=== PATIENT | male | born 1985 | race Caucasian/White ===

== ENCOUNTER 2024-02-29 09:09 | Emergency (ER) | payer OTHER, SELFPAY ==
[2024-02-29] VITALS (8 sets, daily range): BP systolic 96–113; BP diastolic 56–76; BMI 27.2
--- NOTE | 2024-02-29 10:01 | ED.GENMED ---
History of Present Illness
General
Chief Complaint: Abdominal Symptoms
Source: patient
Exam Limitations: none
Time Seen by Provider: 02/29/24 09:46
Nursing documentation reviewed up to this point in time: agreed with
History of Present Illness
History of Present Illness:
38-year-old male presents to the emergency department for nausea vomiting diarrhea that started around 3 AM. Patient has vomited multiple times and has had several episodes of diarrhea. He feels very weak. He reports he did have a low-grade
fever at home. He does report that his had a little bit of diarrhea today.
He denies any actual abdominal pain.
Past History
Past History
ED Past Medical History: Hypercholesterolemia
ED Past Surgical History: None
Social History
Tobacco: Non-smoker
Alcohol: Occasional
Drug: Marijuana (Occasional)
Review of Systems
Review of Systems
Allergies reviewed?: Yes
All Other Systems: ROS reviewed and negative except as documented in HPI and ROS
Constitutional: Reports fever, fatigue and chills
EENT: Reports no symptoms
Respiratory: Reports no symptoms
ABD/GI: Reports nausea, vomiting and diarrhea; Denies abdominal pain
Skin: Reports no symptoms
Neurological: Reports no symptoms
Hematologic/Lymphatic: Reports no symptoms
Psychiatric: Reports no symptoms
Phy Exam
General Physical Exam
General Presentation: no apparent distress
General age: appears stated age
General Skin: warm and dry
General Habitus: normal
General Mental: alert
General Hydration: appears well hydrated
Cardiovascular Exam
Cardiovascular Exam: tachycardia
Pulmonary Exam
Pulmonary Exam: lungs clear and no respiratory distress
Gastrointestinal Exam
Gastrointestinal Exam: normal bowel sounds, non tender and soft
Neurological Exam
Neurological Exam: alert and oriented x3
Musculoskeletal Exam
Musculoskeletal Exam: full ROM
Skin Exam
Skin Exam: normal color and warm/dry
Psychiatric Exam
Psychiatric Exam: normal mood/affect
Course
Orders/Labs/Results
Orders:
Orders
02/29/24 09:57
CMP [Comprehensive Metabolic Panel] Urgent
Complete Blood Count/With Diff Urgent
02/29/24 10:06
Ondansetron Injectable [Zofran] 4 mg IV NOW STA
02/29/24 10:08
0.9% Sodium Chloride 1000 ml [Nss] 1,000 ml IV BOLUS
02/29/24 10:21
COVID-19 Antigen Urgent
Source: Nasal Swab
Influenza A+B Rapid Molecular Urgent
JUMANA Source: Nasal Swab
Specimen Description:
02/29/24 10:59
Ondansetron Injectable [Zofran] 4 mg IV NOW STA
02/29/24 13:51
0.9% Sodium Chloride 1000 ml [Nss] 1,000 ml IV BOLUS
02/29/24 16:08
Ondansetron Orally Disint [Zofran Odt (Orally Disintegrating)] 4 mg PO NOW STA
02/29/24 16:09
Ondansetron HCl [Zofran] 4 mg .ROUTE .STK-MED ONE
02/29/24 16:10
Ondansetron HCl [Zofran] 4 mg PO NOW STA
02/29/24 16:12
Electrocardiogram (*1) Stat
Reason for Study: Other
Other Reason for Exam: chest pain
EKG- Treatment ONCE
Abnormal Lab Results
02/29/24
09:57
Absolute Neuts (auto) 8.4 H 10^3/uL
(1.4-6.5)
Absolute Lymphs (auto) 0.4 L 10^3/uL
(1.2-3.4)
Neutrophils % 90.3 H %
(42.2-75.2)
Lymphocytes % 4.5 L %
(20.5-51.1)
Glucose 190 H mg/dl
(70-99)
02/29/24 09:57
02/29/24 09:57
Vital Signs
Initial and Last Documented VS:
Initial Vital Signs
Temp Pulse Resp BP Pulse Ox
97.8 F 106 24 105/73 100
02/29/24 09:23 02/29/24 09:23 02/29/24 09:23 02/29/24 09:23 02/29/24 09:23
Last Documented Vital Signs
Temp Pulse Resp BP Pulse Ox
97.8 F 90 15 107/71 99
02/29/24 09:23 02/29/24 16:00 02/29/24 16:00 02/29/24 16:00 02/29/24 16:00
MDM/Problems Addressed
Differential Diagnosis Includes:
Not limited to viral syndrome dehydration
MDM/Problems Addressed:
Symptoms are consistent most likely with viral syndrome; patient is negative for COVID-negative for flu. He did not have any episodes of diarrhea here in the treatment area. Patient was given fluids as he was mildly hypotensive and nausea
medicine. Patient was monitored here now tolerating fluids feeling much better. also has diarrhea likely viral. Patient now feeling well enough to go home.
*Pulse Oximetry
Patient hypoxic: no
*EKG
Interpreted by ED Provider?: Yes
Heart Rate: 94
Rate: normal
Rhythm: sinus
Ischemia: no ischemia
*Critical Care Note
Total Time (30-74mins, 75-104mins- exclusive of procedures): Not Applicable
ED Attending Note
-
Portions of this chart may have been created with voice recognition software.� Occasional wrong word or��sound alike� substitutions may have occurred due to the inherent limitations of voice recognition software.
Discharge Plan
Departure
Patient Disposition: Home (Routine Discharge)
Date of Disposition: 02/29/24
Time of Disposition: 16:11
Patient with high blood pressure during this ER visit?: No
Condition: Fair
Covid-19: Not Applicable
Discharge Problem:
Nausea & vomiting
Instructions: Clear Liquid Diet, Caroline Diet, Nausea and Vomiting, Adult (DC)
Prescriptions:
New
ondansetron 4 mg tablet,disintegrating
4 mg PO Q8H PRN (Reason: nausea and vomiting) Qty: 10 0RF
Referrals:
Lolis Santacruz, [Family Provider] -
Activity Restrictions/Additional Instructions:
As discussed clear liquid fluids for the next 24 hours followed by bland solids. A prescription for Zofran was sent to your pharmacy. Take as needed. Follow-up with your family doctor in the next several days. Return if any worsening of
symptoms.
Interventions
Interventions:
*Risk Screen - Suicide Last Done: 02/29/24 09:55
*General Assessment Last Done: 02/29/24 09:55
*Neglect/Abuse Screening Last Done: 02/29/24 09:55
ED- Fall Risk Assessment Last Done: 02/29/24 09:55
*ED COVID-19 Vaccine History Last Done: 02/29/24 09:55
AH-Frtokm-Imeuipwbjt Assessment Last Done: 02/29/24 09:55
Discharge Date and Time
Print Language: UKRAINIAN
[2024-02-29 10:03] LABS: % Basophils 0.3 % (0-2); % Eosinophils 0.5 % (0-6); % Immature Granulocytes 0.3 % (0-0.5); % Lymphocytes 4.5 % (20.5-51.1); % Monocytes 4.1 % (1.7-9.3); % Neutrophils 90.3 % (42.2-75.2); Absolute Eosinophils 0.1 10^3/uL (0-0.7); Absolute Lymphocytes 0.4 10^3/uL (1.2-3.4); Absolute Monocytes 0.4 10^3/uL (0.1-0.6); Absolute Neutrophils 8.4 10^3/uL (1.4-6.5); Hematocrit 43.2 % (39.0-52.0); Hemoglobin 15.4 g/dL (13.0-18.0); Mean Corp Hgb Conc. 35.6 g/dL (33.0-37.0); Mean Corpuscular Hgb 29.8 pg (27.0-31.0); Mean Corpuscular Volume 83.7 fL (80.0-94.0); Mean Platelet Volume 9.2 fL (7.4-10.4); Nucleated Red Blood Cells % 0 % (-); Platelet Count 210 10^3/uL (130-400); Red Blood Cell Count 5.16 10^6/uL (4.70-6.10); Red Cell Dist. Width 11.7 % (11.5-14.5); White Blood Cell Count 9.3 10^3/uL (4.8-10.8)
[2024-02-29 10:16] LABS: ALT (SGPT) 39 U/L (0-50); AST (SGOT) 32 U/L (17-59); Albumin 4.9 g/dl (3.5-5.0); Alkaline Phosphatase 80 U/L (38-126); Blood Urea Nitrogen 20 mg/dl (9-20); Calcium 9.5 mg/dl (8.4-10.2); Carbon Dioxide 22 mmol/L (22-30); Chloride 99 mmol/L (98-107); Estimated Creatinine Clearance 99 ml/min; Glucose 190 mg/dl (70-99); Potassium 3.8 mmol/L (3.5-5.1); Sodium 136 mmol/L (135-145); Total Bilirubin 1.1 mg/dl (0.2-1.3); Total Protein 7.6 g/dl (6.3-8.2); eGFR > 60.00
[2024-02-29] MEDS: ZOFRAN 4 MG IV ×2 (10:22→11:05)
[2024-02-29] MEDS: NSS 1000 IV ×2 (10:22→13:57)
[2024-02-29 10:56] LABS: COVID-19 Antigen Negative (Negative)
[2024-02-29] MEDS: ZOFRAN 4 MG PO (16:10)
== END 2024-02-29 16:26 | disposition home or self-care (01) ==
LOC: EMR 09:09
PROVIDERS: Nurse Practitioner; EMERGENCY PHYSICIAN Emergency Medicine; FAMILY PHYSICIAN Family Medicine
DX: R11.2 Nausea with vomiting, unspecified (principal); R19.7 Diarrhea, unspecified; E78.00 Pure hypercholesterolemia, unspecified
CPT/HCPCS: 99284; 96374; 96376; 96361; 80053; 85025; 87502; 87811; 93005

== ENCOUNTER 2024-11-21 19:55 | Emergency (ER) | payer BC, SELFPAY ==
[2024-11-21 19:58] VITALS: BP 130/93
--- NOTE | 2024-11-21 20:45 | ED.GENMED ---
History of Present Illness
General
Chief Complaint: Head Injury
Source: patient
Time Seen by Provider: 11/21/24 20:37
History of Present Illness
History of Present Illness:
39-year-old male with past medical history of hyperlipidemia presenting to the emergency department for evaluation after sustaining head injury earlier this afternoon stating that he was bending over and upon standing up hit his head on a metal
cabinet door or the bottom of the metal cabinet (patient unsure which). Since that time patient has had headache, blurred vision, neck pain or stiffness, fullness sensation to the right ear and nausea. There was no LOC, no vomiting, no visual
disturbances, no focal weakness or numbness. Patient denies use of anticoagulants. He did not take anything for symptoms prior to arrival.
Past History
Past History
ED Past Medical History: Hypercholesterolemia
ED Past Surgical History: None
Social History
Tobacco: Non-smoker
Alcohol: Occasional
Drug: Marijuana (Occasional)
Personal:
Living: with family
Review of Systems
Review of Systems
All Other Systems: ROS reviewed and negative except as documented in HPI and ROS
Phy Exam
Physical Exam
Physical Exam:
GENERAL: Alert , in no apparent distress pleasant, some repetitive questioning
EYE: conjunctiva clear
Head: Normocephalic atraumatic
NECK: Supple, no midline tenderness, full range of motion
ENT: mmm. No hemotympanum, no canseco scar
LUNGS: no acute respiratory distress
NEUROLOGICAL: Alert and oriented, ambulates with steady gait
SKIN: Warm and dry, skin intact.
MUSCULOSKELETAL: well perfused.
PSYCH: Normal and appropriate interaction.
Scores
Heart Failure Risk
Heart Failure Risk Score: Not Applicable
Heart Score for Chest Pain Patients
STEMI patient?: Not applicable
Withdrawal Assessment of Alcohol
Withdrawal Assessment Completed?: Not applicable
Course
Orders/Labs/Results
Orders:
Orders
10/14/25 20:00
CT Head W/o Iv Contrast Urgent
Comment:
Reason For Exam: head injury
Cervical Spine wo Contrast CT [CT Cervical Spine W/o Iv Contr] Urgent
Comment:
Reason For Exam: head injury
11/21/24 20:46
Ondansetron Orally Disint [Zofran Odt (Orally Disintegrating)] 4 mg PO NOW STA
Vital Signs
Initial and Last Documented VS:
Initial Vital Signs
Temp Pulse Resp BP Pulse Ox
98.2 F 86 16 130/93 100
11/21/24 19:58 11/21/24 19:58 11/21/24 19:58 11/21/24 19:58 11/21/24 19:58
Last Documented Vital Signs
Temp Pulse Resp BP Pulse Ox
98.2 F 86 16 130/93 99
11/21/24 19:58 11/21/24 19:58 11/21/24 19:58 11/21/24 19:58 11/21/24 20:59
MDM/Problems Addressed
Differential Diagnosis Includes:
Concussion
Contusion
Intracranial bleeding
MDM/Problems Addressed:
39-year-old male presenting to the emergency department for evaluation following injury when he stood up and hit his head on a metal. Patient with symptoms suggestive of concussion, does have some mild repetitive questioning at time of my exam. CT
of the head had been ordered and is negative for any acute intracranial pathology. Discussed concussion management as well as symptoms with the patient. Patient aware of return precautions to the ER, otherwise stable for discharge home.
*Radiology
Radiology exam reviewed: radiology read reviewed
*Pulse Oximetry
SaO2: 100
Oxygen Mode of Delivery: Room air
Patient hypoxic: no
*Critical Care Note
Total Time (30-74mins, 75-104mins- exclusive of procedures): Not Applicable
ED Attending Note
-
Portions of this chart may have been created with voice recognition software.� Occasional wrong word or��sound alike� substitutions may have occurred due to the inherent limitations of voice recognition software.
Discharge Plan
Departure
Patient Disposition: Home (Routine Discharge)
Date of Disposition: 11/21/24
Time of Disposition: 20:45
Patient with high blood pressure during this ER visit?: No
Discharge Problem:
Concussion
Instructions: Concussion, Adult (DC)
Prescriptions:
New
ondansetron 4 mg tablet,disintegrating
4 mg PO TIDPRN PRN (Reason: nausea/vomiting) Qty: 10 0RF
No Action
ondansetron 4 mg tablet,disintegrating
4 mg PO Q8H PRN (Reason: nausea and vomiting) Qty: 10 0RF
Interventions
Interventions:
*Risk Screen - Suicide Last Done: 11/21/24 20:00
*General Assessment Last Done: 11/21/24 20:59
*Neglect/Abuse Screening Last Done: 11/21/24 20:00
*ED- Fall Risk Assessment Last Done: 11/21/24 20:59
*ED COVID-19 Vaccine History Last Done: 11/21/24 20:59
*ED Influenza Vaccine History Last Done: 11/21/24 20:59
*Nursing Disposition Last Done: 11/21/24 21:01
ED- Neurological Assessment Last Done: 11/21/24 20:59
ED-Skin Assessment Last Done: 11/21/24 20:59
Discharge Date and Time
Discharge Date/Time: 11/21/24 21:05
Print Language: DANISH
[2024-11-21] MEDS: ZOFRAN ODT (ORALLY DISINTEGRATING) 4 MG PO (20:55)
== END 2024-11-21 21:05 | disposition home or self-care (01) ==
LOC: EMR 19:55
PROVIDERS: EMERGENCY PHYSICIAN Emergency Medicine; FAMILY PHYSICIAN Internal Medicine
DX: S06.0X0A Concussion without loss of consciousness, initial encounter (principal); W22.8XXA Striking against or struck by other objects, initial encounter; E78.00 Pure hypercholesterolemia, unspecified
CPT/HCPCS: 99284; 70450; 72125